=== PATIENT | male | born 1980 | race Caucasian/White ===

== ENCOUNTER 2018-05-09 06:28 | Emergency (ER) | payer OTHER ==
[~2018-05-09] VITALS: Ht 177.8 cm; Wt 99.8 kg
[~2018-05-09 06:28] MED LIST: ACET325; ALBU90OI INH; AZIT250 PO; AZIT500 PO; CEPH500; CEPH500 PO; CLIN150 PO; CODGUAEL PO; CYCL10 PO; Crutch1 EACH MISC; ERYT.5TO OD; ERYT.5TO OS; HYDACE5 PO; HYDR1TAB94; IBUP800 PO; META800 PO; METO10 PO; NAPR500 PO; Naprosyn500 MG PO; OFLO.3OPSO OP; ONDA8 PO; OXYACE5T PO; PROCODE120 PO; PROM25 PO; RANI150 PO; RXCLIN PO; RXCODGUASY PO; RXCYCL10 PO; RXHYDACE PO; SPACE CHAMBER1 EACH MC; TOBR.3OPSO OP; TRAM50 PO; Tamiflu75 MG PO; Ultram50 MG PO
[2018-05-09] MEDS ORDERED: ERYT1OIN LEFTEYE (07:37)
== END 2018-05-09 07:45 | disposition home or self-care (01) ==
LOC: ER 06:28
DX: S05.02XA Injury of conjunctiva and corneal abrasion without foreign body, left eye, initial encounter (principal); H10.9 Unspecified conjunctivitis; W22.8XXA Striking against or struck by other objects, initial encounter; Z88.0 Allergy status to penicillin; Z87.891 Personal history of nicotine dependence
CPT/HCPCS: 99282

== ENCOUNTER 2019-05-13 00:40 | Emergency (ER) | payer SELFPAY ==
[~2019-05-13] VITALS: Ht 177.8 cm; Wt 72.6 kg
[~2019-05-13 00:40] MED LIST changes: +ERYT1OIN LEFTEYE
== END 2019-05-13 02:48 | disposition home or self-care (01) ==
LOC: ER 00:40
DX: S61.213A Laceration without foreign body of left middle finger without damage to nail, initial encounter (principal); S61.215A Laceration without foreign body of left ring finger without damage to nail, initial encounter; Z87.891 Personal history of nicotine dependence; Z88.0 Allergy status to penicillin; W22.8XXA Striking against or struck by other objects, initial encounter
CPT/HCPCS: 12002; 99283-25

== ENCOUNTER 2019-11-09 14:26 | Emergency (ER) | payer SELFPAY ==
[~2019-11-09] VITALS: Ht 177.8 cm; Wt 90.7 kg
[2019-11-09 16:59] LABS: Influenza A Negative (NEGATIVE); Influenza B Negative (NEGATIVE)
== END 2019-11-09 17:15 | disposition home or self-care (01) ==
LOC: ER 14:26
PROVIDERS: Nurse Practitioner
DX: J06.9 Acute upper respiratory infection, unspecified (principal); Z88.0 Allergy status to penicillin; Z87.891 Personal history of nicotine dependence
CPT/HCPCS: 87081; 87430; 87804; 99283

== ENCOUNTER → 2022-03-22 | Outpatient (CLI) | payer OTHER ==
[2022-03-22 11:37] LABS: BASOPHILS ABSOLUTE AUTO 0.07 K/mm3 (0.00-0.23); BASOPHILS PERCENT AUTO 1 % (0-2); EOSINOPHILS ABSOLUTE AUTO 0.31 K/mm3 (0.00-0.68); EOSINOPHILS PERCENT AUTO 4 % (0-6); Hematocrit 42.3 % (37.0-53.0); Hemoglobin 14.7 g/dL (13.5-17.5); IMMATURE GRAN ABSOLUTE AUTO 0.04 K/mm3 (0.00-0.10); IMMATURE GRAN PERCENT AUTO 1 % (0-1); LYMPHOCYTES ABSOLUTE AUTO 2.26 K/mm3 (0.84-5.20); LYMPHOCYTES PERCENT AUTO 28 % (21-46); MONOCYTES ABSOLUTE AUTO 0.57 K/mm3 (0.16-1.47); MONOCYTES PERCENT AUTO 7 % (4-13); Mean Corpuscular HGB 29.3 pg (26.0-34.0); Mean Corpuscular HGB Conc 34.8 g/dL (31.5-36.5); Mean Corpuscular Volume 84 fL (80-100); Mean Platelet Volume 10.4 fL (9.1-12.4); NEUTROPHILS ABSOLUTE AUTO 4.76 K/mm3 (1.96-9.15); NEUTROPHILS PERCENT AUTO 59 % (41-73); Platelet Count 191 K/mm3 (150-400); RDW Coefficient Variation 13.7 % (11.7-14.2); RDW Standard Deviation 42.1 fL (35.1-46.3); Red Blood Cell Count 5.02 M/mm3 (4.30-5.90); White Blood Cell Count 8.01 K/mm3 (4.00-11.30)
== END | disposition home or self-care (01) ==
LOC: LAB SHORT 11:32
PROVIDERS: Physician Assistant Surgical
DX: M79.671 Pain in right foot (principal)
CPT/HCPCS: 84550; 85025

== ENCOUNTER 2024-06-25 23:57 | Emergency (ER) | payer SELFPAY ==
[~2024-06-25] VITALS: Ht 175.3 cm; Wt 103.0 kg
[2024-06-26 02:07] LABS: Influenza A, PCR NEGATIVE (NEGATIVE); Influenza B, PCR NEGATIVE (NEGATIVE); Resp Syncytial Virus, PCR NEGATIVE (NEGATIVE); SARS-Cov-2 (COVID-19) PCR, MMC NEGATIVE (NEGATIVE)
[2024-06-26] MEDS ORDERED: RX Prepack Albuterol 1 PREPACK/6.7 GM INH UD ONE (03:50)
[2024-06-26] MEDS ORDERED: PRED20 PO (03:53)
[2024-06-26] MEDS ORDERED: ALBU90OI INH (03:53)
[2024-06-26] MEDS ORDERED: ZYRTEC10 M2 PO (03:53)
[2024-06-26 04:10] VITALS: BP 152/95
== END 2024-06-26 04:11 | disposition home or self-care (01) ==
LOC: ER 23:57
PROVIDERS: Student in an Organized Health Care Education/Training Program
DX: J45.901 Unspecified asthma with (acute) exacerbation (principal); Z88.0 Allergy status to penicillin; Z87.891 Personal history of nicotine dependence
CPT/HCPCS: 0241U; 71046; 99283; A9270